=== PATIENT | female | born 1985 | race Caucasian/White ===

== ENCOUNTER → 2020-07-15 | Day surgery (SDC) | payer OTHER ==
[~2020-07-15] VITALS: Ht 167.6 cm; Wt 95.7 kg
[~2020-07-15] MED LIST: DOXYCYCLINE MO100 M1 PO; NORCO 5-325 TA1 EACH PO; ONDANSETRON ODT8 MG PO; ZYRTEC10 M3 PO
[2020-07-15 07:06] LABS: HCG (URINE) SCREEN NEGATIVE (NEGATIVE)
== END | disposition home or self-care (01) ==
LOC: FAS 06:47
PROVIDERS: Anesthesiology
DX: L72.3 Sebaceous cyst (principal); Z82.49 Family history of ischemic heart disease and other diseases of the circulatory system; Z83.3 Family history of diabetes mellitus; Z77.22 Contact with and (suspected) exposure to environmental tobacco smoke (acute) (chronic)
CPT/HCPCS: 84703; 93005; J1100; J1170; J1885; J2250; J2405; J2704; J3010; J7120